=== PATIENT | male | born 1975 | race Caucasian/White ===

== ENCOUNTER 2023-02-16 11:55 | Outpatient (RCR) | payer BC, SELFPAY ==
[2023-02-16 12:21] LABS: Basophils Absolute Auto 0.01 K/uL (0.00-0.30); Basophils Percent Auto 0.2 % (0.0-3.0); Eosinophils Absolute Auto 0.01 K/uL (0.00-0.50); Eosinophils Percent Auto 0.2 % (0.0-7.0); Hematocrit 47.1 % (37.0-53.0); Hemoglobin* 16.2 gm/dL (13.5-17.5); Immature Granulocytes Abs Auto 0.01 K/uL (0.00-0.30); Immature Granulocytes Pct Auto 0.2 %; Lymphocytes Absolute Auto 0.96 K/uL (0.90-2.90); Lymphocytes Percent Auto 20.4 % (20-44); Mean Corpuscular HGB Conc 34 gm/dL (32-36); Mean Corpuscular Hemoglobin 30 pg (26-34); Mean Corpuscular Volume 87 fL (80-100); Monocytes Percent Auto 5.7 % (0.0-11.0); Neutrophils Percent Auto 73.3 % (42.0-72.0); Platelet Count* 137 K/uL (140-440); RDW Coefficient of Variation % 11.7 % (11.5-15.5); Red Blood Count 5.42 m/uL (4.30-5.90); White Blood Count* 4.71 K/uL (4.50-11.00)
[2023-02-16 12:34] LABS: Slide Review Reflex No
[2023-02-16 12:40] LABS: Albumin* 4.5 g/dL (3.3-5.0); Chloride* 102 mmol/L (96-114)
[2023-02-16 12:41] LABS: Potassium* 3.8 mmol/L (3.6-5.1); Sodium* 141 mmol/L (135-149)
[2023-02-16 12:43] LABS: Alkaline Phosphatase* 66 U/L (40-150); Anion Gap 12 mEq/L (7-15); Aspartate Amino Transferase* 35 U/L (12-35); Bilirubin Total* 0.6 mg/dL (0.1-1.5); Blood Urea Nitrogen* 17 mg/dL (5-24); Carbon Dioxide* 27 mmol/L (20-32); Estimated Glomerular Filt Rate 95 ml/min; Glucose* 97 mg/dL (60-115); Lactate Dehydrogenase* 156 U/L (120-246); Total Protein* 8.2 g/dL (6.0-8.3)
[2023-02-16 12:44] LABS: Alanine Aminotransferase* 44 U/L (4-50); Calcium* 9.3 mg/dL (8.4-10.6)
== END 2023-08-15 23:59 | disposition home or self-care (01) ==
LOC: CCIC 11:55
PROVIDERS: PCP Family Medicine; Visit Provider Internal Medicine Hematology & Oncology
DX: C91.40 Hairy cell leukemia not having achieved remission (principal); K76.0 Fatty (change of) liver, not elsewhere classified; R61 Generalized hyperhidrosis
CPT/HCPCS: 36415; 80053; 83615; 84443; 85025; 99212; 99214

== ENCOUNTER 2023-02-16 11:58 | Outpatient (CLI) | payer BC, SELFPAY ==
--- NOTE | 2023-02-16 13:00 | CRLHL7_ITS ---
For Patients: As a result of the 21st Century Cures Act, medical imaging exams and procedure reports are released immediately into your electronic medical record. You may view this report before your referring provider. If you have questions, please contact your health care provider. 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 98 cc Isovue 370 intravenous contrast. Please note that all CT scans at this facility use dose modulation, iterative reconstruction, and/or weight-based dosing when appropriate to reduce radiation dose to as low as reasonably achievable. Comparison: 12/17/2020 Findings: In the chest, the visualized thyroid gland is within normal limits. No enlarged mediastinal or hilar lymph nodes. No aortic dissection or pulmonary embolism. No axillary adenopathy. A small hiatal hernia is present measuring 2.5 cm. No fracture. Lungs clear. No pulmonary nodule or infiltrate. No edema or effusion. Mild atelectasis within the left lower lobe. In the abdomen, there is no intrahepatic mass. Diffuse hepatic steatosis noted. Gallbladder normal. No biliary obstruction. Normal pancreas. Spleen normal. Adrenal glands within normal limits. Normal kidneys. No perinephric stranding. No renal stone. No enlarged retroperitoneal lymph nodes. No gastric outlet obstruction. The small bowel is unremarkable. In the pelvis, the bladder is normal. The prostate is not enlarged. No bowel obstruction or free air. No free fluid or abscess. No pelvic or inguinal adenopathy. No fracture is present. Discogenic spurring L5-S1. Spurring of both hip joints. Impression: No adenopathy in the chest, abdomen or pelvis. Diffuse hepatic steatosis. No significant change since the prior study. Please note that all CT scans at this facility use dose modulation, iterative reconstruction, and/or weight-based dosing when appropriate to reduce radiation dose to as low as reasonably achievable. Dictated by Red Martel MD @ 02/18/2023 12:24:09 PM (Electronically Signed)
== END 2023-02-16 11:59 | disposition home or self-care (01) ==
LOC: CT 11:59
PROVIDERS: PCP Family Medicine; Referring Provider Family Medicine; Visit Provider Internal Medicine Hematology & Oncology
DX: C91.40 Hairy cell leukemia not having achieved remission (principal); K76.0 Fatty (change of) liver, not elsewhere classified
CPT/HCPCS: 71260; 74177; Q9967

== ENCOUNTER 2023-04-10 08:09 | Outpatient (CLI) | payer BC, SELFPAY | END 2023-04-10 08:10 | disposition home or self-care (01) | PROVIDERS: PCP Family Medicine; Visit Provider Family Medicine | DX: Z12.5 Encounter for screening for malignant neoplasm of prostate (principal); Z13.220 Encounter for screening for lipoid disorders | CPT/HCPCS: 80061; 84153 ==

== ENCOUNTER 2023-11-17 14:19 | Outpatient (RCR) | payer BC, SELFPAY ==
[2023-11-17 14:39] LABS: Basophils Percent Auto 0.2 % (0.0-3.0); Eosinophils Percent Auto 0.9 % (0.0-7.0); Hematocrit 43.5 % (37.0-53.0); Hemoglobin* 14.8 gm/dL (13.5-17.5); Lymphocytes Percent Auto 26.7 % (20-44); Mean Corpuscular HGB Conc 34 gm/dL (32-36); Mean Corpuscular Hemoglobin 31 pg (26-34); Mean Corpuscular Volume 90 fL (80-100); Monocytes Percent Auto 4.8 % (0.0-11.0); Neutrophils Percent Auto 67.4 % (42.0-72.0); Platelet Count* 113 K/uL (140-440); Red Blood Count 4.84 m/uL (4.30-5.90); White Blood Count* 4.35 K/uL (4.50-11.00)
[2023-11-17 14:53] LABS: Albumin* 4.3 g/dL (3.3-5.0); Chloride* 104 mmol/L (96-114); Potassium* 3.8 mmol/L (3.6-5.1); Sodium* 139 mmol/L (135-149)
[2023-11-17 14:55] LABS: Creatinine* 1.2 mg/dL (0.5-1.5); Estimated Glomerular Filt Rate 76 ml/min; Slide Review Reflex No
[2023-11-17 14:56] LABS: Alanine Aminotransferase* 33 U/L (4-50); Alkaline Phosphatase* 68 U/L (40-150); Anion Gap 7 mEq/L (7-15); Aspartate Amino Transferase* 31 U/L (12-35); Blood Urea Nitrogen* 21 mg/dL (5-24); Carbon Dioxide* 28 mmol/L (20-32); Glucose* 88 mg/dL (60-115); Lactate Dehydrogenase* 154 U/L (120-246); Total Protein* 7.2 g/dL (6.0-8.3)
[2023-11-17 14:57] LABS: Calcium* 8.7 mg/dL (8.4-10.6)
== END 2024-05-15 23:59 | disposition home or self-care (01) ==
LOC: CCIC 14:19
PROVIDERS: PCP Family Medicine; Referring Provider Family Medicine; Visit Provider Internal Medicine Hematology & Oncology
DX: C91.40 Hairy cell leukemia not having achieved remission (principal); K76.0 Fatty (change of) liver, not elsewhere classified; R74.01 Elevation of levels of liver transaminase levels; D69.6 Thrombocytopenia, unspecified
CPT/HCPCS: 36415; 80053; 83615; 85025; 99213; 99214; G0463

== ENCOUNTER 2025-01-26 15:34 | Outpatient (CLI) | payer BC, SELFPAY ==
--- NOTE | 2025-01-26 16:00 | CRLHL7_ITS ---
For Patients: As a result of the 21st Century Cures Act, medical imaging exams and procedure reports are released immediately into your electronic medical record. You may view this report before your referring provider. If you have questions, please contact your health care provider. INDICATION: Hairy cell leukemia, not having achieved remission TECHNIQUE: Volumetric helical scanning of the chest, abdomen and pelvis was performed with 112 cc of Isovue 370 contrast material IV. Coronal and sagittal reconstructions were obtained. COMPARISON: Chest/abdomen/pelvis CT of 02/16/2023 FINDINGS: CHEST: No axillary, mediastinal or hilar adenopathy is apparent. The lungs are clear. A new noncalcified 3 mm perifissural right upper lobe nodule is demonstrated on image 44 of series 3. There is no significant airway abnormality. No pleural effusion is demonstrated. A small hiatal hernia is again demonstrated. The heart is normal in size. ABDOMEN/PELVIS: The liver is normal in size, shape and attenuation. The spleen is mild to moderately enlarged, somewhat increased from the prior study. No retroperitoneal, pelvic, or mesenteric lymphadenopathy is evident. The bile ducts are within normal limits. The adrenal glands and pancreas are negative. The kidneys are within normal limits. The bowel is unremarkable. No free fluid is demonstrated. The prostate is unremarkable. No lytic or blastic bone lesion is identified. IMPRESSION: 1. Mild to moderate splenomegaly, somewhat increased from the prior study. No lymphadenopathy or other significant abnormality. 2. Small hiatal hernia. 3. New noncalcified 3 mm perifissural right upper lobe nodule. A six-month follow up chest CT is suggested. Please note that all CT scans at this facility use dose modulation, iterative reconstruction, and/or weight-based dosing when appropriate to reduce radiation dose to as low as reasonably achievable. Dictated by José Darby MD @ 01/27/2025 12:26:41 PM (Electronically Signed)
== END 2025-01-26 15:35 | disposition home or self-care (01) ==
LOC: CT 15:35
PROVIDERS: PCP Family Medicine; Visit Provider Internal Medicine Hematology & Oncology
DX: C91.40 Hairy cell leukemia not having achieved remission (principal); R16.1 Splenomegaly, not elsewhere classified; K44.9 Diaphragmatic hernia without obstruction or gangrene; R91.8 Other nonspecific abnormal finding of lung field
CPT/HCPCS: 71260; 74177; Q9967

== ENCOUNTER 2025-04-26 15:28 | Outpatient (CLI) | payer BC, SELFPAY ==
--- NOTE | 2025-04-26 16:00 | CRLHL7_ITS ---
For Patients: As a result of the 21st Century Cures Act, medical imaging exams and procedure reports are released immediately into your electronic medical record. You may view this report before your referring provider. If you have questions, please contact your health care provider. 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 TECHNIQUE: CT chest, abdomen and pelvis acquired with 112 cc of Isovue 370 IV contrast. COMPARISON: CT 01/26/2025 and 02/16/2023. FINDINGS: CHEST: Cardiovascular structures: Heart size is normal. Thoracic aorta and main pulmonary artery are normal in caliber. Mediastinum and mehran: No pathologic lymphadenopathy. Small hiatal hernia. Lungs: No pneumothorax. Central airways are patent. No suspicious nodules or acute airspace disease. Pleura and pericardium: No effusions. Chest wall and axilla: Unremarkable. ABDOMEN AND PELVIS: Liver: Fatty change. No focal lesion. Spleen: Splenomegaly measures 18.1 cm in craniocaudal length on coronal image 94 of series 8, previously 17.1 cm. No focal lesion. Pancreas: Unremarkable. Gallbladder and bile ducts: Unremarkable. Kidneys: Unremarkable. Adrenal glands: Unremarkable. GI tract: Mild colonic diverticulosis without evidence of acute diverticulitis. No obstruction or acute inflammatory change. Tiny fat containing umbilical hernia. No free air or free fluid. Vascular structures: Unremarkable. Lymph nodes: No pathologic lymphadenopathy. Pelvic Organs: Unremarkable. Bones: No acute or suspicious abnormality. IMPRESSION: 1. Splenomegaly has slightly increased. 2. No pathologic lymphadenopathy in the chest, abdomen or pelvis. Dictated by Hugh Barrios MD @ 04/27/2025 9:43:03 AM Please note that all CT scans at this facility use dose modulation, iterative reconstruction, and/or weight-based dosing when appropriate to reduce radiation dose to as low as reasonably achievable. Dictated by: Hugh Barrios MD @ 04/27/2025 09:43:24 (Electronically Signed)
== END 2025-04-26 15:29 | disposition home or self-care (01) ==
LOC: CT 15:29
PROVIDERS: PCP Family Medicine; Visit Provider Internal Medicine Hematology & Oncology
DX: C91.40 Hairy cell leukemia not having achieved remission (principal); R16.0 Hepatomegaly, not elsewhere classified
CPT/HCPCS: 71260; 74177; Q9967